=== PATIENT | female | born 2000 | race Two or more races ===

== ENCOUNTER 2024-09-15 11:27 | Inpatient (IN) | payer OTHER ==
[~2024-09-15] VITALS: Ht 165.1 cm; Wt 83.5 kg
[2024-09-19 02:18] VITALS: BP 113/79
[2024-09-19 02:45] VITALS: BP 113/79
[2024-09-19] MEDS ORDERED: PRENATAL + DHA1 EAC1 PO (02:48)
[2024-09-19] MEDS ORDERED: RINGERS SOLUTION,LACTATED 1,000 ML IV SCH ×2 (03:00→15:45)
[2024-09-19 03:38] LABS: HEMATOCRIT 36.9 % (36.0-45.00); HEMOGLOBIN 12.4 g/dL (12.0-15.00); MEAN CELL VOLUME 89.7 fL (80.00-100.00); MEAN CORPUSCULAR HEMOGLOBIN 30.1 pg (27.00-32.0); MEAN CORPUSCULAR HGB CONC 33.6 g/dl (32.0-36.0); PLATELET COUNT 254 K/uL (150-450); RED BLOOD COUNT 4.12 M/uL (4.00-6.00); RED CELL DISTRIBUTION WIDTH 14.1 % (11.5-14.5)
[2024-09-19 03:52] LABS: INR < 0.93; PARTIAL THROMBOPLASTIN TIME 27.3 SECONDS (22.0-34.0); PROTHROMBIN TIME 10.1 SECONDS (9.0-11.5)
[2024-09-19 07:21] VITALS: BP 119/75
[2024-09-19] MEDS ORDERED: OXYTOCIN 500 ML IV SCH (08:30)
[2024-09-19 12:59] VITALS: BP 104/63
[2024-09-19] MEDS ORDERED: CEFAZOLIN SODIUM 1,000 MG VIAL IV SCH (14:30)
[2024-09-19] MEDS ORDERED: OXYTOCIN 1,000 ML IV ONE (15:45)
[2024-09-19] MEDS ORDERED: MORPHINE SULFATE 4 MG/ML CARTRIDGE IV PRN (15:45)
[2024-09-19] MEDS ORDERED: MORPHINE SULFATE 4 MG/ML VIAL IV ONE ×2 (16:45→18:20)
[2024-09-19] MEDS ORDERED: OXYTOCIN 10 UNITS/ML VIAL IV ONE (16:45)
[2024-09-19] MEDS ORDERED: ERYTHROMYCIN BASE OPHT 1GM EACH TUBE OP ONE (16:45)
[2024-09-19] MEDS ORDERED: GABAPENTIN 300 MG CAPSULE PO SCH (17:00)
[2024-09-19] MEDS ORDERED: SIMETHICONE 125 MG CAPSULE PO SCH (17:00)
[2024-09-19] MEDS ORDERED: KETOROLAC TROMETHAMINE 30 MG VIAL IV SCH (18:00)
[2024-09-19] MEDS ORDERED: ACETAMINOPHEN 500 MG GEL..CAP PO SCH (18:00)
[2024-09-19] MEDS ORDERED: ONDANSETRON HCL 2 MG/ML VIAL IV SCH (18:00)
[2024-09-19 19:17] VITALS: BP 106/73
[2024-09-20 00:39] VITALS: BP 101/66
[2024-09-20 04:00] VITALS: BP 100/67
[2024-09-20 06:42] LABS: HEMATOCRIT 33.8 % (36.0-45.00); HEMOGLOBIN 11.6 g/dL (12.0-15.00); MEAN CORPUSCULAR HEMOGLOBIN 30.5 pg (27.00-32.0); MEAN CORPUSCULAR HGB CONC 34.3 g/dl (32.0-36.0); PLATELET COUNT 200 K/uL (150-450); RED CELL DISTRIBUTION WIDTH 14.3 % (11.5-14.5)
[2024-09-20] MEDS ORDERED: OxyCODONE HCL 5 MG TABLET (ROXICODONE) PO PRN (08:00)
[2024-09-20] MEDS ORDERED: KETOROLAC TROMETHAMINE 10 MG TABLET PO SCH (08:00)
[2024-09-20 08:58] VITALS: BP 107/72
[2024-09-20 14:19] VITALS: BP 120/81; O2SAT 99
[2024-09-20 19:00] VITALS: BP 117/78
[2024-09-21] VITALS: BP 121/75
[2024-09-21] MEDS ORDERED: OxyCODONE HCL 5 MG TABLET (ROXICODONE) PO PRN (06:00)
[2024-09-21 08:45] VITALS: BP 118/76
[2024-09-21] MEDS ORDERED: IBUprofen 400 MG TABLET PO SCH (09:00)
[2024-09-21 16:03] VITALS: BP 108/75
[2024-09-22 00:19] VITALS: BP 90/60
[2024-09-22 08:00] VITALS: BP 99/66
== END 2024-09-22 11:05 | disposition home or self-care (01) | DRG 788 ==
LOC: LDR 09-19 02:45 → O/R 09-19 16:14 → OB/GYN 09-19 16:42
PROVIDERS: Obstetrics & Gynecology; ADMIT Obstetrics & Gynecology Maternal & Fetal Medicine; ATTEND Obstetrics & Gynecology Maternal & Fetal Medicine
PROC: 4A1HXCZ Monitoring of Products of Conception, Cardiac Rate, External Approach (ICD-10-PCS; 2024-09-19)
PROC: 10D00Z1 Extraction of Products of Conception, Low, Open Approach (ICD-10-PCS; principal; 2024-09-19 13:00)
DX: O62.0 Primary inadequate contractions (principal); O33.8 Maternal care for disproportion of other origin; Z3A.38 38 weeks gestation of pregnancy; Z37.0 Single live birth